=== PATIENT | male | born 1975 | race Caucasian/White ===

== ENCOUNTER 2023-05-04 06:54 | Day surgery (SDC) | payer BC ==
[~2023-05-04] VITALS: Ht 188 cm; Wt 91.2 kg
[~2023-05-04 06:54] MED LIST: LR 1,000 ML IV SCH; Ondansetron 4 MG/2 ML VIAL IV PRN
[2023-05-04] MEDS ORDERED: CIALIS5 MG PO (07:51)
[2023-05-04 07:54] VITALS: BP 130/91; PULSE 80; TEMP 97.8
[2023-05-04] MEDS ORDERED: Lidocaine PF 2% (20 MG/ML) 5 ML VIAL ONE (08:01)
[2023-05-04 08:40] VITALS: BP 99/74; PULSE 67
[2023-05-04 08:48] VITALS: BP 97/70; PULSE 65
[2023-05-04 09:00] VITALS: BP 103/83; PULSE 62
--- NOTE | 2023-05-04 12:12 | NUR ---
0840 PATIENT RETURNS TO [facility] [place], [place] [facility] VIA CART. PT AWAKE AND ALERT. RESPIRATIONS UNLABORED. AMBULATED TO RECLINER CHAIR WITH 2:1 SBA. PT DENIES NAUSEA OR ABDOMINAL PAIN. HOOKED UP TO MONITOR AND VS OBTAINED. CALL LIGHT AT SIDE. 0842 PATIENT TOLERATING PEPSI AND MUFFIN WITHOUT NAUSEA OR DIFFICULTY SWALLOWING (EGD ONLY). 0900 IN ROOM SPEAKING WITH PATIENT. 0902 D/C INSTRUCTIONS REVIEWED WITH PATIENT. PT VERBALIZED UNDERSTANDING AND A COPY OF INSTRUCTIONS PROVIDED IN D/C FOLDER. 0910 PATIENT DRESSES SELF. 0915 PATIENT DISCHARGED FROM UNIT VIA W/C TO A PERSONAL VEHICLE. PT LEFT HOSPITAL IN STABLE CONDITION.
== END 2023-05-04 09:15 | disposition home or self-care (01) ==
LOC: SDCO 06:54
DX: Z12.11 Encounter for screening for malignant neoplasm of colon (principal); D12.4 Benign neoplasm of descending colon; D12.8 Benign neoplasm of rectum; Z87.891 Personal history of nicotine dependence
CPT/HCPCS: J2704; J7120